=== PATIENT | male | born 1985 ===

== ENCOUNTER 2017-04-12 22:00 | Emergency (ER) | payer MEDICAID ==
[2017-04-12 22:13] VITALS: BP 155/99; PULSE 83; RESP 20; TEMP 98; O2SAT 98
--- NOTE | 2017-04-12 22:26 | C.PDOC ---
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 Patient states his pain is not present on his days off. Patient has been prescribed Tramadol since May [address] Magda Pearson and patient is now seeking refills. He is also concerned due to elevated blood pressure. Patient states he was referred to Dr. Amato for evaluation of diabetes but currently denies any polyuria, polydypsia. He reports last taking Tramadol yesterday. Patient has no other complaints. Time Seen by Provider: 04/12/17 22:20 Chief Complaint (Nursing): High Blood Pressure History Per: Patient History/Exam Limitations: no limitations Onset/Duration Of Symptoms: Days Current Symptoms Are (Timing): Still Present Past Medical History Reviewed: Historical Data, Nursing Documentation, Vital Signs Vital Signs: Last Vital Signs Temp 98 F 04/12/17 22:08 Pulse 83 04/12/17 22:08 Resp 20 04/12/17 22:08 BP 155/99 H 04/12/17 22:08 Pulse Ox 98 04/12/17 22:54 - Medical History PMH: No Chronic Diseases Surgical History: No Surg Hx Family History: States: No Known Family Hx - Social History Hx Alcohol Use: Yes Hx Substance Use: No Review Of Systems Except As Marked, All Systems Reviewed And Found Negative. Constitutional: Negative for: Fever, Chills Cardiovascular: Positive for: Other (elevated blood pressure). Negative for: Chest Pain Respiratory: Negative for: Shortness of Breath Musculoskeletal: Positive for: Leg Pain, Other (trapezius pain) Physical Exam - Physical Exam Appears: Non-toxic, Other (anxious appearing) Skin: Normal Color, Warm, Dry Head: Normacephalic Eye(s): bilateral: Other (pupilary medriasis) Neck: Normal ROM, No Midline Cervical Tenderness, No Paracervical Tenderness, Supple Chest: Symmetrical Cardiovascular: Rhythm Regular Respiratory: Normal Breath Sounds, No Wheezing Extremity: Tenderness (bilateral trapezius tenderness) Neurological/Psych: Oriented x3, Normal Speech, Normal Cognition Gait: Steady (no pain) ED Course And Treatment O2 Sat by Pulse Oximetry: 98 (RA) Pulse Ox Interpretation: Normal Medical Decision Making Medical Decision Making: chronic pain issues due to b/l trapezius tenderness and b/l lower leg pain, directly related to working as a 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 dilated pupils and tremulous/anxious c/w narcotics withdrawal [facility] reviewed- ? Dr. Yun Pearson has been prescribing Tramadol for occasional lower leg pain since 05/29, now lost to f/u because Dr. Pearson "doesn' t understand my pain issues" Referred by Dr. Pearson to Dr. Amato for new dx DM FS done tonight BP NOT in a concerning range and c/w w/d and not hypertensive urgency/emergency Unable to refill chronic narcs Disposition Doctor Will See Patient In The: Office Counseled Patient/Family Regarding: Studies Performed, Diagnosis - Disposition Referrals: Magda Pearson MD [Non-Staff] - Disposition: HOME/ ROUTINE Disposition Time: 22:53 Condition: GOOD Additional Instructions: for your typical trapezius and lower leg discomforts related to working as a greenberg, please consider motrin 400-600 mg every 6 hours or Tylenol 1000 mg every 6 hours. Tramadol is an addictive narcotic pain reliever and may not be refilled in the Emergency Department. Follow-up with Dr. Amato regarding your new diagnosis of Diabetes. Instructions: Type 2 Diabetes, Chronic Pain (DC), Diabetes Diet Forms: [email or web address] ([place]) - Clinical Impression Clinical Impression: Chronic pain disorder, Narcotic withdrawal - Scribe Statement The provider has reviewed the documentation as recorded by the Scribe (Bertha Gardner) Provider Attestation: All medical record entries made by the Scribe were at my direction and personally dictated by me. I have reviewed the chart and agree that the record accurately reflects my personal performance of the history, physical exam, medical decision making, and the department course for this patient. I have also personally directed, reviewed, and agree with the discharge instructions and disposition.
== END 2017-04-12 23:09 | disposition home or self-care (01) ==
LOC: C.ER 22:00
DX: G89.29 Other chronic pain (principal); F11.23 Opioid dependence with withdrawal